=== PATIENT | male | born 1940 | race Caucasian/White ===

== ENCOUNTER 2016-12-26 18:29 | Inpatient (IN) ==
--- NOTE | 2016-12-26 19:02 | Emergency Department Report ---
Psych HPI - General Stated Complaint: Evaluation Time Seen by Provider: 12/26/16 18:41 Source: patient Mode of arrival: ambulatory Limitations: no limitations - History of Present Illness HPI Narrative: He is a resident at [facility] in [place]. Over the last several days has been refusing to eat and to take him medications. His recently and then he went to live in the [place]. He presents to Er today for medical clearance. MD complaint: altered mental status, other (weight loss, not taking his medications) Onset (ago): week(s) Duration: constant Prior Hospitalization: No Relieving factors: none Exacerbating factors: none Associated psychiatric symptoms: depression Associated symptoms: denies other symptoms Treatments prior to arrival: none - Related Data Home Medications Medication Instructions Recorded Confirmed Acetaminophen 650 mg PO Q6H PRN 12/26/16 12/26/16 Donepezil HCl [Aricept] 5 mg PO HS 12/26/16 12/26/16 LORazepam [Ativan] 0.5 mg PO Q6H PRN 12/26/16 12/26/16 Linaclotide [Linzess] 145 mcg PO DAILY 12/26/16 12/26/16 Memantine HCl [Namenda Xr] 28 mg PO DAILY 12/26/16 12/26/16 RisperiDONE [RisperDAL] 0.25 mg PO BID 12/26/16 12/26/16 Allergies Allergy/AdvReac Type Severity Reaction Status Date / Time codeine Allergy Unknown Verified 12/26/16 19:05 hydrocodone Allergy Unknown Verified 12/26/16 19:05 Review of Systems Constitutional: Denies: fever, chills, weakness ENT: Denies: ear pain, throat pain, congestion Cardiovascular: Denies: chest pain Respiratory: Denies: cough, dyspnea, wheezes Gastrointestinal: Denies: abdominal pain, nausea, vomiting, diarrhea Integumentary: Denies: rash Neurological: Denies: headache, weakness, numbness, paresthesias [facility] Patient Stated Medical History Dementia Yes Other GI Yes: CONSTIPATION Physical Exam - Limitations Limitations: no limitations - General General appearance: alert, in no apparent distress - Normal Exams: ENMT:: No facial trauma, nasal exudates, pharyngeal erythema, or exudates are noted Neck:: Full range of motion, without adenopathy, JVD, bruits or thyromegaly Chest/Respirations:: Clear all ray, with good airflow, and symmetry bilaterally Cardiovascular:: Regular rate and rhythm, without murmur or gallop, Pulses 2+ all extremities, capillary refill, <2 seconds all extremities Abdomen:: Bowel sounds positive, soft, non-tender, non-distended, no hepatosplenomegaly, masses or bruits noted Lymphatic:: No lymphadenopathy, or lymphedema noted Integumentary:: No rashes, hives, or bruising noted Neurological:: Patient is alert Psychiatric:: Patient exhibits, appropriate attention, emotion and affect - Psychiatric Psychiatric exam: Present: depressed, other (Is alert to person only. ) Course Vital Signs Temperature 97.7 F 12/26/16 18:42 Pulse Rate 69 12/26/16 18:42 Respiratory Rate 12 12/26/16 18:42 Blood Pressure 113/62 12/26/16 18:42 Pulse Oximetry 100 12/26/16 18:42 Temperature 97.7 F 12/26/16 18:42 Pulse Rate 63 12/26/16 20:30 Respiratory Rate 12 12/26/16 18:42 Blood Pressure 120/68 12/26/16 20:30 Pulse Oximetry 98 12/26/16 20:30 Psych - MDM Narrative Medical decision making narrative: Labs today are normal, xray is negative. Will clear him today for [facility]. - Differential Diagnosis Likely: suicidal ideation, depression, acute anxiety - Lab Data Attestation: I reviewed the patient's lab results. Result diagrams: 12/26/16 19:10 12/26/16 19:10 Lab Results 12/26/16 12/26/16 12/26/16 Range/Units 19:10 19:10 20:13 WBC 7.2 (4.5-11.0) T/MM3 RBC 3.97 L (4.50-5.90) M/MM3 Hgb 12.1 L (13.5-17.5) GM/DL Hct 37.2 L (41-53) % MCV 93.7 (80-100) UM3 MCH 30.5 (26-34) UUG MCHC 32.5 (31-37) GM/DL RDW Std Deviation 42.3 (36.9-50.2) FL Plt Count 150 (130-400) T/MM3 MPV 11.5 (9.4-12.4) UM3 Immature Gran % (Auto) 0.1 (0.0-0.5) % Neut % (Auto) 76.3 H (33-66) % Lymph % (Auto) 17.9 L (23-45) % Wilkes % (Auto) 5.3 (0-9.0) % Eos % (Auto) 0.1 (0-4) % Baso % (Auto) 0.3 (0-2) % Neut # (Auto) 5.5 (1.8-7.7) T/MM3 Lymph # (Auto) 1.3 (1-4.8) T/MM3 Wilkes # (Auto) 0.4 (0-0.8) T/MM3 Eos # (Auto) 0.0 (0-0.5) T/MM3 Baso # (Auto) 0.0 (0-0.2) T/MM3 Abs Immat Gran (auto) 0.01 (0.00-0.03) T/MM3 Turbidity < 20 (0-20) Sodium 144 (134-144) MEQ/L Potassium 4.0 (3.6-5) MEQ/L Chloride 107 (98-107) MEQ/L Carbon Dioxide 28 (22-30) MEQ/L Anion Gap 9 (5-15) MEQ/L BUN 36.0 H (9-20) MG/DL Creatinine 1.0 (0.8-1.5) MG/DL GFR Calculation 73 BUN/Creatinine Ratio 36 H (6-26) RATIO Glucose 87 (75-110) MG/DL Calculated Osmolality 284 H (261-280) MOSM/KG Calcium 9.3 (8.4-10.2) MG/DL Total Bilirubin 0.70 (0.20-1.30) MG/DL Icterus Index < 2 (0-7) AST 26 (17-59) U/L ALT 37 (21-72) U/L Alkaline Phosphatase 49 (38-126) U/L Total Protein 6.3 (6.3-8.2) G/DL Albumin 3.6 (3.5-5.0) G/DL Globulin 2.7 (2.4-3.6) G/DL Albumin/Globulin Ratio 1.3 (1.1-2.2) RATIO Specimen Hemolysis < 15 (0-25) Ur Collection Type Urine, clean catch Urine Color Yellow (YELLOW) Urine Clarity Clear Urine pH 6.5 (5.0-8.0) Ur Specific [place] 1.010 L (1.015-1.025) Urine Protein Negative (NEGATIVE) Urine Glucose (UA) Negative (NEGATIVE) Urine Ketones Negative (NEGATIVE) Urine Occult Blood Trace-intact (NEGATIVE) Urine Nitrate Negative (NEGATIVE) Urine Bilirubin Negative (NEGATIVE) Urine Urobilinogen >=8.0 A (NORMAL) EU/DL Ur Leukocyte Esterase Negative (NEGATIVE) Urinalysis Comment Microscopic not ind. - Radiology Data Attestation: I reviewed the patient's radiology results. Chest xray: no acute cardiopulmonary process Disposition Clinical Impression: DEMENTIA Disposition: 67 To [facility] [place] [facility] Condition: Stable Time of Disposition: 21:24 - Seen By: real
[2016-12-26] MEDS ORDERED: HALOPERIDOL 5 MG/ML INJECTION IM PRN (22:11)
[2016-12-27] MEDS: LORazepam 0.5 MG TABLET PO PRN (03:22)
[2016-12-27] MEDS: HALOPERIDOL 0.5 MG TABLET PO PRN (03:22)
--- NOTE | 2016-12-27 08:19 | XRay Report ---
Indication: confusion PROCEDURE: XR chest 1V: Encounter: Initial Comparison: None Findings: The lungs are hyperinflated with small calcified granulomas. No consolidative pneumonia, pleural effusion or pneumothorax. Prior CABG with coronary artery stent. Cardiac silhouette is within normal limits. Pulmonary vascularity and mediastinal contours are normal. Impression: No pneumonia. Hyperinflation could be due to COPD. .
[2016-12-27] MEDS: MEMANTINE 10 MG TABLET PO SCH ×2 (10:01→20:02)
[2016-12-27] MEDS: LINACLOTIDE 145 MCG CAPSULE PO SCH (10:01)
--- NOTE | 2016-12-27 14:59 | History & Physical Report ---
<SamreenFunmi A - Last Filed: 12/27/16 14:48> History of Present Illness Date: 12/27/16 Chief complaint: dementia with behavioral changes, weight loss HPI: Ildefonso Miramontes is a 76-year-old male resident of [facility] who presented to [facility] emergency department on the evening of 12/26/16 for evaluation of increased anxiety, agitation and behavioral changes. He has a history of dementia and is a poor historian so the majority of the medical history is obtained from prior medical records, halfway notes and nursing notes. In September,, he was moved to [place] following his 's as she was his primary caregiver. His his move, nursing has reported a decline. He has experienced a 16 pound weight loss in the past month and is now requiring assistance with food intake as he has been refusing to eat and more recently, his medications. It is also reported that he has been experiencing visual hallucinations for the past 3 days including seeing a coat, cats and gremlins as well as demonstrating paranoid delusions including "concern with food delivery" causing him to pour out liquid supplement shakes offered. Due to his apparent decline, he was brought to [facility] ED for further evaluation and [facility] screening. Upon arrival to the ED, his vital signs were stable. Labs were obtained and were unremarkable with the exception of mild anemia with hemoglobin of 12.1. Review of prior medical records indicates that his hemoglobin on 12/23/16 was 13.5. TSH was within normal limits at 2.27 and UA was unremarkable. CXR revealed no pneumonia with hyperinflation which could be due to COPD. [facility] was contacted and he was admitted for further psychiatric evaluation and treatment. The hospitalist service was consulted for medical management as he has a history of CAD with previous CABG, constipation and dementia. On exam, he is seen while sleeping in his room. He arouses briefly and makes eye contact before going back to sleep. He denies any concerns or complaints including no chest pain, shortness of breath, abdominal pain, nausea, vomiting or dysuria. Review of Systems ROS unobtainable: due to mental status All systems PM: 10-point ROS was reviewed, no additional remarkable complaints except - Constitutional Constitutional: Present: anorexia, weight loss. Absent: fever(s) - EENMT Eyes: Absent: photophobia Nose: Absent: nosebleeds Mouth/Throat: Present: dry mouth - Cardiovascular Cardiovascular: Absent: chest pain, palpitations, syncope Vascular: Absent: pedal edema - Respiratory Respiratory: Absent: cough, dyspnea, hemoptysis, wheezing - Gastrointestinal Gastrointestinal: Present: constipation. Absent: abdominal pain, nausea, vomiting - Genitourinary Genitourinary: Absent: dysuria, hematuria - Musculoskeletal Musculoskeletal: Absent: deformity - Integumentary/Breasts Integumentary: Absent: rash - Neurological Neurological: Present: confusion, frequent falls, memory loss. Absent: convulsions - Psychiatric Psychiatric: Present: anxiety, behavioral changes, paranoia, visual hallucinations - Endocrine Endocrine: Absent: palpitations - Hematologic/Lymphatic Hematologic/Lymphatic: Absent: easy bleeding - Allergic/Immunologic Allergic/Immunologic: Absent: seasonal rhinorrhea PFSH Constipation. Dementia. CAD. Surgical History: CABG. Tonsillectomy. Family History Updates: Unable to obtain due to patient's dementia. 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 Cyr/Ghazal Montes APRN. Review of records from halfway included forms outlining patient's likes and dislikes including his love for cars, working on hotrods and art. Medications Home Medications Medication Instructions Recorded Confirmed Type Acetaminophen 650 mg PO Q6H PRN 12/26/16 12/26/16 History Donepezil HCl [Aricept] 5 mg PO HS 12/26/16 12/26/16 History LORazepam [Ativan] 0.5 mg PO Q6H PRN 12/26/16 12/26/16 History Linaclotide [Linzess] 145 mcg PO DAILY 12/26/16 12/26/16 History Memantine HCl [Namenda Xr] 28 mg PO DAILY 12/26/16 12/26/16 History RisperiDONE [RisperDAL] 0.25 mg PO BID 12/26/16 12/26/16 History Allergies Allergy/AdvReac Type Severity Reaction Status Date / Time codeine Allergy Unknown Verified 12/26/16 19:05 hydrocodone Allergy Unknown Verified 12/26/16 19:05 Exam Vital Signs: Temperature 98.1 F 12/27/16 09:30 Pulse Rate 87 12/27/16 09:30 Respiratory Rate 16 12/27/16 09:30 Blood Pressure 107/79 12/27/16 09:30 Pulse Oximetry 100 12/27/16 09:30 Height/Weight/BMI: Height 5 ft 7 in Weight 124 lb 1.924 oz - Constitutional Present: no acute distress, cooperative - Routine HEENT Exam Head: Present: normocephalic, atraumatic Eye: Present: PERRL. Absent: conjunctival icterus ENT: Present: mucous membranes dry - Routine Neck Exam Present: supple, trachea midline - Routine Chest/Breast/Axilla Exam Chest wall: Absent: pacemaker - Routine Respiratory Exam Present: CTA bilaterally. Absent: wheezes, crackles - Routine Cardiovascular Exam Present: RRR, S1, S2 - Routine Abdominal Exam Present: soft, normoactive bowel sounds, non distended, non tender Comments: very thin - Routine Extremities Exam Present: no edema, pulses intact - Routine Back/Spine/Pelvis Exam Back/Spine: Present: full ROM - Routine Skin Exam Present: intact, dry. Absent: jaundice Comments: afebrile. - Routine Neurological Exam Present: moving all extremities. Absent: facial asymmetry - Routine Psychiatric Exam Present: cooperative Results - Labs CBC & Chem 7: 12/26/16 19:10 12/26/16 19:10 - Imaging and Cardiology Chest x-ray Status: image reviewed by me Additional comments: Date of Exam: 12/26/16 PROCEDURE: XR chest 1V: Findings: The lungs are hyperinflated with small calcified granulomas. No consolidative pneumonia, pleural effusion or pneumothorax. Prior CABG with coronary artery stent. Cardiac silhouette is within normal limits. Pulmonary vascularity and mediastinal contours are normal. Impression: No pneumonia. Hyperinflation could be due to COPD. Assessment and Plan (1) Dementia with behavioral disturbance Current visit: Yes Status: Acute Resuscitation Status: Do Not Resuscitate Assessment and Plan: 76-year-old resident of [facility] in [place] presented to [facility] ED for evaluation of dementia with behavioral changes including decreased appetite, weight loss, agitation, visual hallucinations and paranoid delusions and was accepted to [facility] unit. Assessment Dementia with behavioral changes, acute. Paranoid delusions and visual hallucinations, acute. Anemia, present on admission, acute. Constipation, chronic. History of CAD with prior CABG, chronic. Plan-12/27/16 (Admission) Agree on admission to [facility] unit for further psychiatric evaluation and treatment. Hospitalist service consulted for medical management. Provide safe and supportive environment. Reported decrease in oral intake with weight loss of 16 pounds in the past month. Patient is at risk for malnutrition and complications associated with malnutrition. Consult dietary for additional recommendations. Prealbumin on admission was 14.9, concerning for mild protein calorie malnutrition. Encourage oral intake and fluids. Continue home medications as well as PRN medications for agitation and behaviors. Hemoglobin on admission was low at 12.1. Hemoglobin on 12/23 based on prior records was 13.5. Monitor closely for signs of acute blood loss as BUN is also noted to be slightly elevated at 36. Will recheck CBC and BMP in AM to monitor blood counts, electrolytes and renal function. Given weight loss, decreased appetite, anemia and elevated BUN, may consider checking fecal Hemoccult for possible GI bleed if labs in AM continue to trend down. Monitor blood pressure closely. Review of the patient's chart revealed living will indicating that the patient does not want IV hydration or IV nutrition to prolong life or intubation. DNR paperwork was not present in chart. Discussed with nursing who reported that DNR paperwork is waiting on being signed by Dr. Dan. Currently the patient remains a full code. Upon discharge, patient's care will be returned to his PCP, Dr. Cyr. We appreciate being able to be apart of the patient's care. - Time spent with patient Time with patient PN: 70 minutes Hospital Course Summary Disclaimer: The visit summary below is not to be considered part of the above Progress Note. Hospital Course: Assessment Dementia with behavioral changes, acute. Paranoid delusions and visual hallucinations, acute. Anemia, present on admission, acute. Constipation, chronic. History of CAD with prior CABG, chronic. Plan-12/27/16 (Admission) Agree on admission to [facility] unit for further psychiatric evaluation and treatment. Hospitalist service consulted for medical management. Provide safe and supportive environment. Reported decrease in oral intake with weight loss of 16 pounds in the past month. Patient is at risk for malnutrition and complications associated with malnutrition. Consult dietary for additional recommendations. Prealbumin on admission was 14.9, concerning for mild protein calorie malnutrition. Encourage oral intake and fluids. Continue home medications as well as PRN medications for agitation and behaviors. Hemoglobin on admission was low at 12.1. Hemoglobin on 12/23 based on prior records was 13.5. Monitor closely for signs of acute blood loss as BUN is also noted to be slightly elevated at 36. Will recheck CBC and BMP in AM to monitor blood counts, electrolytes and renal function. Given weight loss, decreased appetite, anemia and elevated BUN, may consider checking fecal Hemoccult for possible GI bleed if labs in AM continue to trend down. Monitor blood pressure closely. Review of the patient's chart revealed living will indicating that the patient does not want IV hydration or IV nutrition to prolong life or intubation. DNR paperwork was not present in chart. Discussed with nursing who reported that DNR paperwork is waiting on being signed by Dr. Dan. Currently the patient remains a full code. Upon discharge, patient's care will be returned to his PCP, Dr. Cyr. We appreciate being able to be apart of the patient's care. <Nora Archuleta - Last Filed: 12/27/16 21:50> History of Present Illness Date: 12/27/16 [facility] Patient Stated Medical History Dementia Yes Coronary Artery Disease Yes: CABG x4 Other GI Yes: CONSTIPATION IBS, wt. loss, poor appetite Hx Incontinence Yes Other Yes: elevated lipids Depression Yes Exam Vital Signs: Temperature 99.0 F 12/27/16 17:27 Pulse Rate 84 12/27/16 17:27 Respiratory Rate 18 12/27/16 17:27 Blood Pressure 110/66 12/27/16 17:27 Pulse Oximetry 100 12/27/16 17:27 Height/Weight/BMI: Height 1.7 m Weight 56.245 kg Body Mass Index 19.4 Results - Labs CBC & Chem 7: 12/26/16 19:10 12/26/16 19:10 Assessment and Plan (1) Dementia with behavioral disturbance Current visit: Yes Status: Acute Assessment and Plan: 12/27/2016-I reviewed this chart, the patient history, and the TOWER WATCHMAN's/PA's documented findings as above. We discussed and formulated the assessment and plan as above with the additions below.-Dr. Archuleta I would see the patient this evening but, he was asleep in his room. He did not want to awaken him. His nurse states that he is very nonsensical and confused. He drank juice well for her tonight as long as he was redirected. He needed Haldol and Ativan earlier today. Medically, she stated he was doing well. We'll continue with current care plan as noted above. CT head was ordered and is pending. B-12 and folate are pending. We'll start nutritional supplements 3 times a day. Nursing staff will likely need to encourage the patient to eat and drink well. Hospital Course Summary Disclaimer: The visit summary below is not to be considered part of the above Progress Note.
[2016-12-27] MEDS ORDERED: INFLUENZA VAC High Dose 2017-18 (Fluzone HD*) (>=65yo) 0.5ml IM ONE (16:24)
[2016-12-27 16:29] VITALS: BMI 19.4
[2016-12-27] MEDS ORDERED: INFLUENZA VAC. INJ. ADMIN CHARGE INJ ONE (16:45)
--- NOTE | 2016-12-27 20:02 | 24 Hour Neuropsychiatic Eval ---
Date of Admission: 12/26/16 22:00 Chief complaint: Decline since 's recent History of Present Illness: Patient is a 76-year-old male with a history of dementia who was admitted to [facility] on 12/27 from [facility]. He has been living there since 10/13/16, since the sudden of his 2nd (and primary caregiver). Staff report patient has declined since that time, losing 16 lb. in the past month. He has been refusing to eat and take medications. He has had VH and paranoia. He has been less engaging with staff/residents and occasionally will push staff away if they try to help. On interview, patient whispers and can be very difficult to understand. He walks with a shuffling, slow gait with his back hunched. He tells me he is from [place], [place] and he is here "because his Dad need a job." He did complain to nursing staff about seeing scary things (cats, gremlins, Swastikas, cars) when walking the halls. He does not give logical answers when asked about SI or HI. Patient reportedly lost his first before remarrying and then lost a son in his 20s in an MVA. His 2nd reportedly suddenly due to [place]. DPOA is daughter Ananya Miramontes ([phone]). Depression: Loss of Energy, Changes in Appetite, Significant Weight Loss Psychosis: Hallucinations/Illusions, Disorganized speech (secondary to dementia) PFSH Patient Stated Medical History Dementia Yes Coronary Artery Disease Yes: CABG x4 Other GI Yes: CONSTIPATION IBS, wt. loss, poor appetite Hx Incontinence Yes Other Yes: elevated lipids Depression Yes Surgical History: CABG. Tonsillectomy. Family History: Unobtainable from patient - will discuss with family - Social History Smoking status: Former smoker Substance use type: does not use Alcohol intake frequency: does not drink Housing: assisted living facility ([facility]) Household members: none Current residence: Assisted Living Review of Systems ROS unobtainable: due to mental status - EENMT Nose: Absent: nosebleeds Mouth/Throat: Present: dry mouth - Cardiovascular Vascular: Absent: pedal edema - Genitourinary Genitourinary: Absent: dysuria, hematuria - Psychiatric Psychiatric: Present: as per HPI, behavioral changes, paranoia, visual hallucinations Mental Status Exam Vitals: Last Vital Signs Temp 99.0 F 12/27/16 17:27 Pulse 84 12/27/16 17:27 Resp 18 12/27/16 17:27 BP 110/66 12/27/16 17:27 Pulse Ox 100 12/27/16 17:27 Height: 1.7 m Weight: 56.245 kg - Mental Status Exam Muscle Strength/Tone: Weak Dressing: Casual Grooming: Poor Attitude: Cooperative Motor Activity: Pacing (slowly) Eye Contact: Poor Speech: Slowed Volume: Soft (barely audible) Rhythm: Mumbled Sensory: Alert Orientation: Disoriented to time, Disoriented to place, Disoriented to situation , Oriented to person Mood: Other (Patient does not give logical response) Affect: Flat Rate of Thoughts: Delayed Thought Organization: Disorganized, [place] Associations: Illogical Abstract Reasoning: Impaired, concrete Thought Content: Paranoia (reported by NH), Other (Out of context to interview questions) Perception/Psychotic: Psychotic Current Hallucinations: Visual Language: Naming Impaired Fund of Knowledge: Poor fund of knowledge Memory: Poor-immediate, Poor-recent Suicidal Ideation: Other (Patient does not give logical response) Homicidal Ideation: Other (Patient does not give logical response) Insight: Impaired Judgement: Impaired Impulse Control: Poor - Laboratory Result Diagrams: 12/26/16 19:10 12/26/16 19:10 Assessment and Plan (1) Major neurocognitive disorder Problem details: Etiology unknown - r/o Lewy body dementia Current visit: Yes Status: Acute (2) Psychosis Qualifiers: Psychosis type: unspecified psychosis type Qualified Code(s): F29 - Unspecified psychosis not due to a substance or known physiological condition Problem details: r/o Major depressive disorder with psychotic features Mood disorder strongly suspected Current visit: Yes Status: Acute Admit to [facility] and maintain safety and elopement precautions. Will obtain further collateral history from family and facility. Will review/order following labs: CBC, CMP, TSH, Vitamin B12, folate. May consider CT of head if not done recently and patient will tolerate it. Monitor patient's mood and behavior. Will discuss treatment with DPOA prior to starting psychotropic medications.
[2016-12-27] MEDS ORDERED: DONEPEZIL 5 MG TABLET PO SCH (21:00)
[2016-12-28] MEDS: MEMANTINE 10 MG TABLET PO SCH ×2 (08:57→21:04)
[2016-12-28] MEDS: LINACLOTIDE 145 MCG CAPSULE PO SCH (08:57)
[2016-12-28] MEDS ORDERED: Bisacodyl EC TAB 5 MG TABLET PO PRN (11:50)
[2016-12-28] MEDS: LORazepam 0.5 MG TABLET PO PRN (16:29)
[2016-12-28] MEDS: ACETAMINOPHEN 325 MG TABLET PO PRN (19:49)
--- NOTE | 2016-12-28 19:50 | Neuropsych Progress Note ---
[facility] Subjective Date: 12/28/16 - Sujective/Severity of Illness Medications: Acetaminophen (Tylenol) 650 mg PO Q6H PRN PRN Reason: Pain /Fever Bisacodyl (Dulcolax) 10 mg PO DAILY PRN PRN Reason: Constipation Last Admin: 12/28/16 12:10 Dose: 10 mg Donepezil HCl (Aricept) 5 mg PO HS [facility] Last Admin: 12/27/16 20:02 Dose: 5 mg Haloperidol (Haldol) 0.5 mg PO Q6H PRN PRN Reason: Extreme agitation Last Admin: 12/27/16 03:22 Dose: 0.5 mg Haloperidol Lactate (Haldol) 0.5 mg IM Q6H PRN PRN Reason: Extreme agitation Linaclotide (Linzess) 145 mcg PO DAILY [facility] Last Admin: 12/28/16 08:57 Dose: 145 mcg Lorazepam (Ativan) 0.5 mg PO Q6H PRN PRN Reason: Extreme agitation Last Admin: 12/28/16 16:29 Dose: 0.5 mg Lorazepam (Ativan Inj) 0.5 mg IM Q6H PRN PRN Reason: Extreme agitation Memantine (Namenda) 10 mg PO BID [facility] Last Admin: 12/28/16 08:57 Dose: 10 mg Risperidone (Risperdal) 0.25 mg PO BID [facility] Last Admin: 12/28/16 08:57 Dose: 0.25 mg Subjective: Patient seen and chart reviewed. Case discussed with treatment team. On interview, patient is cooperative but seems emotionally distressed. He is disorganized and illogical at times but does admit to feeling depressed frequently, with difficulty sleeping and decreased appetite. He believes he attended the of a friend today and says it is a rough day because of that. He continues to have distressing VH and be frequently restless. He reports morbid thoughts but denies suicidal plan/intent. He does say he has had thoughts of hurting his sister or daughter but then gives an illogical reason as to why. Patient slept well overnight. VSS. Patient has been eating better since admission. Psychotropic PRNs required in the past 24 hours: Ativan 0.5mg PO. Start Time: 17:40 Stop Time: 18:00 Mental Status Exam Vitals: Last Vital Signs Temp 97.9 F 12/28/16 08:47 Pulse 87 12/28/16 08:47 Resp 16 12/28/16 08:47 BP 113/76 12/28/16 08:47 Pulse Ox 95 12/28/16 08:47 Height: 1.7 m Weight: 56.245 kg - Mental Status Exam Muscle Strength/Tone: Weak Dressing: Casual Grooming: Poor Attitude: Cooperative Motor Activity: Pacing (frequently), Restless Eye Contact: Poor Speech: Slowed Volume: Soft (barely audible) Rhythm: Mumbled Orientation: Disoriented to time, Disoriented to place, Disoriented to situation , Oriented to person Mood: Depressed Affect: Depressed (appears distressed) Rate of Thoughts: Delayed Thought Organization: Disorganized, [place] Associations: Illogical Abstract Reasoning: Impaired, concrete Thought Content: Ruminations, Hopelessness, Helplessness Perception/Psychotic: Psychotic Current Hallucinations: Visual Language: Naming Impaired Fund of Knowledge: Poor fund of knowledge Memory: Poor-immediate, Poor-recent Suicidal Ideation: Other (Endorses morbid thoughts, denies suicidal plan/intent) Homicidal Ideation: Other (Says he has thoughts of hurting his daughter and sister) Insight: Impaired Judgement: Impaired Impulse Control: Poor - Laboratory Result Diagrams: 12/28/16 06:09 12/28/16 06:09 Laboratory Results - last 24 hr 12/28/16 12/28/16 06:09 06:09 WBC 5.5 RBC 4.18 L Hgb 12.4 L Hct 38.8 L MCV 92.8 MCH 29.7 MCHC 32.0 RDW Std Deviation 41.9 Plt Count 156 MPV 11.5 Immature Gran % (Auto) 0.0 Neut % (Auto) 69.1 H Lymph % (Auto) 23.5 [place] % (Auto) 5.6 Eos % (Auto) 1.3 Baso % (Auto) 0.5 Neut # (Auto) 3.8 Lymph # (Auto) 1.3 [place] # (Auto) 0.3 Eos # (Auto) 0.1 Baso # (Auto) 0.0 Abs Immat Gran (auto) 0.00 Turbidity < 20 Sodium 144 Potassium 3.7 Chloride 107 Carbon Dioxide 31 H Anion Gap 6 BUN 24.0 H Creatinine 0.7 L D GFR Calculation 110 BUN/Creatinine Ratio 34 H Glucose 85 Calculated Osmolality 280 Calcium 9.2 Icterus Index < 2 Specimen Hemolysis < 15 Assessment and Plan (1) Major neurocognitive disorder Problem details: Etiology unknown - r/o Lewy body dementia Current visit: Yes Status: Acute (2) Psychosis Qualifiers: Psychosis type: unspecified psychosis type Qualified Code(s): F29 - Unspecified psychosis not due to a substance or known physiological condition Problem details: r/o Major depressive disorder with psychotic features Mood disorder strongly suspected Current visit: Yes Status: Acute Hospital Course Summary Disclaimer: The visit summary below is not to be considered part of the above Progress Note. Hospital Course: Assessment Dementia with behavioral changes, acute. Paranoid delusions and visual hallucinations, acute. Anemia, present on admission, acute. Constipation, chronic. History of CAD with prior CABG, chronic. Plan-12/27/16 (Admission) Agree on admission to [facility] unit for further psychiatric evaluation and treatment. Hospitalist service consulted for medical management. Provide safe and supportive environment. Reported decrease in oral intake with weight loss of 16 pounds in the past month. Patient is at risk for malnutrition and complications associated with malnutrition. Consult dietary for additional recommendations. Prealbumin on admission was 14.9, concerning for mild protein calorie malnutrition. Encourage oral intake and fluids. Continue home medications as well as PRN medications for agitation and behaviors. Hemoglobin on admission was low at 12.1. Hemoglobin on 12/23 based on prior records was 13.5. Monitor closely for signs of acute blood loss as BUN is also noted to be slightly elevated at 36. Will recheck CBC and BMP in AM to monitor blood counts, electrolytes and renal function. Given weight loss, decreased appetite, anemia and elevated BUN, may consider checking fecal Hemoccult for possible GI bleed if labs in AM continue to trend down. Monitor blood pressure closely. Review of the patient's chart revealed living will indicating that the patient does not want IV hydration or IV nutrition to prolong life or intubation. DNR paperwork was not present in chart. Discussed with nursing who reported that DNR paperwork is waiting on being signed by Dr. Dan. Currently the patient remains a full code. Upon discharge, patient's care will be returned to his PCP, Dr. Cyr. We appreciate being able to be apart of the patient's care. 12/28/16 Psych: Will discuss treatment plan with patient's daughter/DPOA. Plan to start Zoloft 25mg PO daily to target depression and Exelon patch as LBD seems most likely. May eventually need antipsychotic but would like to ensure patient is tolerating these meds well first. Patient has been eating better since admission. Monitor mood, behavior and response to treatment.
[2016-12-28] MEDS ORDERED: DONEPEZIL 5 MG TABLET PO SCH (20:00)
[2016-12-29] MEDS: SERTRALINE 25 MG TABLET PO SCH (08:51)
[2016-12-29] MEDS: MEMANTINE 10 MG TABLET PO SCH ×2 (08:51→20:29)
[2016-12-29] MEDS: LINACLOTIDE 145 MCG CAPSULE PO SCH (08:51)
--- NOTE | 2016-12-29 10:37 | Neuropsych Progress Note ---
[facility] Subjective Date: 12/30/16 - Sujective/Severity of Illness Medications: Acetaminophen (Tylenol) 650 mg PO Q6H PRN PRN Reason: Pain /Fever Last Admin: 12/28/16 19:49 Dose: 650 mg Bisacodyl (Dulcolax) 10 mg PO DAILY PRN PRN Reason: Constipation Last Admin: 12/28/16 12:10 Dose: 10 mg Donepezil HCl (Aricept) 10 mg PO [facility] Haloperidol (Haldol) 0.5 mg PO Q6H PRN PRN Reason: Extreme agitation Last Admin: 12/27/16 03:22 Dose: 0.5 mg Haloperidol Lactate (Haldol) 0.5 mg IM Q6H PRN PRN Reason: Extreme agitation Linaclotide (Linzess) 145 mcg PO DAILY [facility] Last Admin: 12/29/16 08:51 Dose: 145 mcg Lorazepam (Ativan) 0.5 mg PO Q6H PRN PRN Reason: Extreme agitation Last Admin: 12/28/16 16:29 Dose: 0.5 mg Lorazepam (Ativan Inj) 0.5 mg IM Q6H PRN PRN Reason: Extreme agitation Memantine (Namenda) 10 mg PO BID [facility] Last Admin: 12/29/16 08:51 Dose: 10 mg Risperidone (Risperdal) 0.25 mg PO BID [facility] Last Admin: 12/29/16 08:51 Dose: 0.25 mg Sertraline HCl (Zoloft) 25 mg PO DAILY [facility] Last Admin: 12/29/16 08:51 Dose: 25 mg Subjective: Patient not available for unit as he was participating in cares during my time on unit. Staff report that patient needs frequent cueing but has not appeared paranoid, anxious or agitated since last seen (the evening prior). He needs cueing and encouragement but finished 100% of his food. He was reportedly pleasant and seemed more coherent earlier this morning after sleeping 8 hours overnight, no PRNs required since last seen. VSS. Start Time: 09:20 Stop Time: 09:30 Mental Status Exam Vitals: Last Vital Signs Temp 98.5 F 12/28/16 22:00 Pulse 55 L 12/29/16 06:31 Resp 18 12/28/16 22:00 BP 122/67 12/29/16 06:31 Pulse Ox 92 12/28/16 22:00 Height: 1.7 m Weight: 56.245 kg - Mental Status Exam Muscle Strength/Tone: Weak Dressing: Casual Grooming: Poor Attitude: Cooperative Eye Contact: Poor Speech: Slowed Volume: Soft (barely audible) Rhythm: Mumbled Orientation: Disoriented to time, Disoriented to place, Disoriented to situation , Oriented to person Mood: Depressed Rate of Thoughts: Delayed Thought Organization: Disorganized, [place] Associations: Illogical Abstract Reasoning: Impaired, concrete Thought Content: Ruminations, Hopelessness, Helplessness Perception/Psychotic: Psychotic Current Hallucinations: Visual Language: Naming Impaired Fund of Knowledge: Poor fund of knowledge Memory: Poor-immediate, Poor-recent Suicidal Ideation: Other (Endorses morbid thoughts, denies suicidal plan/intent) Homicidal Ideation: Other (Says he has thoughts of hurting his daughter and sister) Insight: Impaired Judgement: Impaired Impulse Control: Poor - Laboratory Result Diagrams: 12/28/16 06:09 12/28/16 06:09 Assessment and Plan (1) Major neurocognitive disorder Problem details: Etiology unknown - r/o Lewy body dementia Current visit: Yes Status: Acute (2) Psychosis Qualifiers: Psychosis type: unspecified psychosis type Qualified Code(s): F29 - Unspecified psychosis not due to a substance or known physiological condition Problem details: r/o Major depressive disorder with psychotic features Mood disorder strongly suspected Current visit: Yes Status: Acute Hospital Course Summary Disclaimer: The visit summary below is not to be considered part of the above Progress Note. Hospital Course: Assessment Dementia with behavioral changes, acute. Paranoid delusions and visual hallucinations, acute. Anemia, present on admission, acute. Constipation, chronic. History of CAD with prior CABG, chronic. Plan-12/27/16 (Admission) Agree on admission to [facility] unit for further psychiatric evaluation and treatment. Hospitalist service consulted for medical management. Provide safe and supportive environment. Reported decrease in oral intake with weight loss of 16 pounds in the past month. Patient is at risk for malnutrition and complications associated with malnutrition. Consult dietary for additional recommendations. Prealbumin on admission was 14.9, concerning for mild protein calorie malnutrition. Encourage oral intake and fluids. Continue home medications as well as PRN medications for agitation and behaviors. Hemoglobin on admission was low at 12.1. Hemoglobin on 12/23 based on prior records was 13.5. Monitor closely for signs of acute blood loss as BUN is also noted to be slightly elevated at 36. Will recheck CBC and BMP in AM to monitor blood counts, electrolytes and renal function. Given weight loss, decreased appetite, anemia and elevated BUN, may consider checking fecal Hemoccult for possible GI bleed if labs in AM continue to trend down. Monitor blood pressure closely. Review of the patient's chart revealed living will indicating that the patient does not want IV hydration or IV nutrition to prolong life or intubation. DNR paperwork was not present in chart. Discussed with nursing who reported that DNR paperwork is waiting on being signed by Dr. Dan. Currently the patient remains a full code. Upon discharge, patient's care will be returned to his PCP, Dr. Cyr. We appreciate being able to be apart of the patient's care. 12/28/16 Psych: Will discuss treatment plan with patient's daughter/DPOA. Plan to start Zoloft 25mg PO daily to target depression, increase donepezil to 10mg PO q HS. May eventually need antipsychotic but would like to ensure patient is tolerating these meds well first. Patient has been eating better since admission. Monitor mood, behavior and response to treatment. 12/29 Psych: Continue current care as patient seems to have improved from yesterday - will continue to monitor mood, behavior today. Encouragement and cueing from staff is helpful in getting patient to eat more of his meals.
[2016-12-29] MEDS: DONEPEZIL 10 MG TABLET PO SCH (20:29)
[2016-12-29] MEDS: ACETAMINOPHEN 325 MG TABLET PO PRN (20:38)
[2016-12-30] MEDS: MEMANTINE 10 MG TABLET PO SCH ×3 (08:42→20:38)
[2016-12-30] MEDS: LINACLOTIDE 145 MCG CAPSULE PO SCH (08:42)
[2016-12-30] MEDS: SERTRALINE 25 MG TABLET PO SCH (08:42)
--- NOTE | 2016-12-30 10:50 | XRay Report ---
INDICATION: mental status change PROCEDURE: CHEST 2-VIEWS UPRIGHT (PA & LAT) Encounter: Initial COMPARISON: December 26, 2016 FINDINGS: The lungs are clear without evidence of focal abnormal airspace opacity. There is no pleural effusion or pneumothorax. Poststernotomy changes are present. The heart size, mediastinal contours and pulmonary vascularity are within normal limits. There is no significant skeletal abnormality. IMPRESSION: No acute cardiopulmonary disease. .
--- NOTE | 2016-12-30 10:50 | CT Scan Report ---
Indication: mental status change PROCEDURE: CT head/brain wo con: Encounter: Initial Comparison: None Technique: Axial CT images through the head were performed without contrast. Iterative Reconstruction dose reducing technique was utilized. FINDINGS: Mild atrophy. The ventricles are of normal size, shape, and contour for the patient's age. There are scattered areas of low attenuation in the white matter which most likely represent changes from chronic microvascular ischemia. The brainstem, cerebellum, and cerebral hemispheres otherwise have a normal morphology and CT attenuation. There is no evidence of midline displacement. No hemorrhage, signs of acute territorial stroke, mass effect, mass lesions, or edema is evident. The visualized portions of the skull base, midface, and calvarium demonstrate no abnormality. The paranasal sinuses are well aerated and free of significant disease. The tympanic and mastoid cavities appear normal. IMPRESSION: No acute intracranial abnormality or hemorrhage. .
[2016-12-30] MEDS: HALOPERIDOL 0.5 MG TABLET PO PRN (11:28)
[2016-12-30] MEDS: LORazepam 0.5 MG TABLET PO PRN (11:28)
--- NOTE | 2016-12-30 14:58 | Neuropsych Progress Note ---
[facility] Subjective Date: 12/30/16 - Sujective/Severity of Illness Medications: Acetaminophen (Tylenol) 650 mg PO Q6H PRN PRN Reason: Pain /Fever Last Admin: 12/29/16 20:38 Dose: 650 mg Bisacodyl (Dulcolax) 10 mg PO DAILY PRN PRN Reason: Constipation Last Admin: 12/28/16 12:10 Dose: 10 mg Donepezil HCl (Aricept) 10 mg PO HS [facility] Last Admin: 12/29/16 20:29 Dose: 10 mg Haloperidol (Haldol) 0.5 mg PO Q6H PRN PRN Reason: Extreme agitation Last Admin: 12/27/16 03:22 Dose: 0.5 mg Haloperidol Lactate (Haldol) 0.5 mg IM Q6H PRN PRN Reason: Extreme agitation Last Admin: 12/30/16 11:56 Dose: 0.5 mg Linaclotide (Linzess) 145 mcg PO DAILY [facility] Last Admin: 12/30/16 08:42 Dose: 145 mcg Lorazepam (Ativan) 0.5 mg PO Q6H PRN PRN Reason: Extreme agitation Last Admin: 12/28/16 16:29 Dose: 0.5 mg Lorazepam (Ativan Inj) 0.5 mg IM Q6H PRN PRN Reason: Extreme agitation Last Admin: 12/30/16 11:56 Dose: 0.5 mg Memantine (Namenda) 10 mg PO BID [facility] Last Admin: 12/30/16 08:42 Dose: 10 mg Risperidone (Risperdal) 0.25 mg PO BID [facility] Last Admin: 12/30/16 08:42 Dose: 0.25 mg Sertraline HCl (Zoloft) 25 mg PO DAILY [facility] Last Admin: 12/30/16 08:42 Dose: 25 mg Subjective: Patient seen and chart reviewed. On interview, patient is sleeping soundly after requiring an IM for behaviors this morning, including pushing his wheelchair into other people. Nursing staff report patient was cooperative last night but then attempted to throw his food this morning and was aggressive with staff. He continues ot have AVH and talk to people under his breath. Patient slept 7.5 hours overnight. VSS. Patient is eating well with encouragment /cueing from staff. 12/29 Chest x-ray: WNL 12/[address]: mild atrophy, likely changes due to chronic microvascular ischemia Vitamin B12, folate, TSH, RPR all WNL. BUN decreased since admission. Start Time: 11:40 Stop Time: 12:00 Mental Status Exam Vitals: Last Vital Signs Temp 97.7 F 12/30/16 14:43 Pulse 71 12/30/16 14:43 Resp 14 12/30/16 14:43 BP 164/89 H 12/30/16 14:43 Pulse Ox 99 12/30/16 14:43 Height: 1.7 m Weight: 56.245 kg - Mental Status Exam Muscle Strength/Tone: Weak Dressing: Casual Grooming: Poor Attitude: Combative Motor Activity: Restless Eye Contact: Poor Speech: Slowed Volume: Soft (barely audible) Rhythm: Mumbled Orientation: Disoriented to time, Disoriented to place, Disoriented to situation , Oriented to person Mood: Depressed Rate of Thoughts: Delayed Thought Organization: Disorganized, [place] Associations: Illogical Abstract Reasoning: Impaired, concrete Thought Content: Ruminations, Hopelessness, Helplessness Perception/Psychotic: Psychotic Current Hallucinations: Visual, Auditory (suspected) Language: Naming Impaired Fund of Knowledge: Poor fund of knowledge Memory: Poor-immediate, Poor-recent Suicidal Ideation: Other (Endorses morbid thoughts, denies suicidal plan/intent) Homicidal Ideation: Other (Says he has thoughts of hurting his daughter and sister) Insight: Impaired Judgement: Impaired Impulse Control: Poor - Laboratory Result Diagrams: 12/28/16 06:09 12/28/16 06:09 Assessment and Plan (1) Major neurocognitive disorder Problem details: Etiology unknown - r/o Lewy body dementia Current visit: Yes Status: Acute (2) Psychosis Qualifiers: Psychosis type: unspecified psychosis type Qualified Code(s): F29 - Unspecified psychosis not due to a substance or known physiological condition Problem details: r/o Major depressive disorder with psychotic features Mood disorder strongly suspected Current visit: Yes Status: Acute Hospital Course Summary Disclaimer: The visit summary below is not to be considered part of the above Progress Note. Hospital Course: Assessment Dementia with behavioral changes, acute. Paranoid delusions and visual hallucinations, acute. Anemia, present on admission, acute. Constipation, chronic. History of CAD with prior CABG, chronic. Plan-12/27/16 (Admission) Agree on admission to [facility] for further psychiatric evaluation and treatment. Hospitalist service consulted for medical management. Provide safe and supportive environment. Reported decrease in oral intake with weight loss of 16 pounds in the past month. Patient is at risk for malnutrition and complications associated with malnutrition. Consult dietary for additional recommendations. Prealbumin on admission was 14.9, concerning for mild protein calorie malnutrition. Encourage oral intake and fluids. Continue home medications as well as PRN medications for agitation and behaviors. Hemoglobin on admission was low at 12.1. Hemoglobin on 12/23 based on prior records was 13.5. Monitor closely for signs of acute blood loss as BUN is also noted to be slightly elevated at 36. Will recheck CBC and BMP in AM to monitor blood counts, electrolytes and renal function. Given weight loss, decreased appetite, anemia and elevated BUN, may consider checking fecal Hemoccult for possible GI bleed if labs in AM continue to trend down. Monitor blood pressure closely. Review of the patient's chart revealed living will indicating that the patient does not want IV hydration or IV nutrition to prolong life or intubation. DNR paperwork was not present in chart. Discussed with nursing who reported that DNR paperwork is waiting on being signed by Dr. Dan. Currently the patient remains a full code. Upon discharge, patient's care will be returned to his PCP, Dr. Cyr. We appreciate being able to be apart of the patient's care. 12/28/16 Psych: Will discuss treatment plan with patient's daughter/DPOA. Plan to start Zoloft 25mg PO daily to target depression, increase donepezil to 10mg PO q HS. Continue Risperdal 0.5mg PO BID for the time being - may eventually switch to Seroquel. Patient has been eating better since admission. Monitor mood , behavior and response to treatment. 12/29 Psych: Continue current care as patient seems to have improved from yesterday - will continue to monitor mood, behavior today. Encouragement and cueing from staff is helpful in getting patient to eat more of his meals. 12/30 Psych: Will increase Zoloft to 50mg PO daily, discontinue Risperdal and instead start Seroquel 25mg PO TID. Monitor mood, behavior and response to treatment.
[2016-12-30] MEDS: QUETIAPINE 25 MG TABLET PO SCH ×2 (18:36→20:38)
[2016-12-30] MEDS: DONEPEZIL 10 MG TABLET PO SCH (20:38)
[2016-12-31] MEDS: LINACLOTIDE 145 MCG CAPSULE PO SCH (09:53)
[2016-12-31] MEDS: SERTRALINE 50 MG TABLET PO SCH (09:54)
[2016-12-31] MEDS: QUETIAPINE 25 MG TABLET PO SCH ×3 (09:54→20:24)
[2016-12-31] MEDS: MEMANTINE 10 MG TABLET PO SCH ×2 (10:00→20:24)
[2016-12-31] MEDS: DONEPEZIL 10 MG TABLET PO SCH (20:24)
[2016-12-31] MEDS: ACETAMINOPHEN 325 MG TABLET PO PRN (20:24)
[2016-12-31] MEDS: HALOPERIDOL 0.5 MG TABLET PO PRN (20:24)
[2016-12-31] MEDS: LORazepam 0.5 MG TABLET PO PRN (20:24)
--- NOTE | 2016-12-31 21:36 | Neuropsych Progress Note ---
[facility] Subjective Date: 01/01/17 - Sujective/Severity of Illness Medications: Acetaminophen (Tylenol) 650 mg PO Q6H PRN PRN Reason: Pain /Fever Last Admin: 12/31/16 20:24 Dose: 650 mg Bisacodyl (Dulcolax) 10 mg PO DAILY PRN PRN Reason: Constipation Last Admin: 12/28/16 12:10 Dose: 10 mg Donepezil HCl (Aricept) 10 mg PO HS [facility] Last Admin: 12/31/16 20:24 Dose: 10 mg Haloperidol (Haldol) 0.5 mg PO Q6H PRN PRN Reason: Extreme agitation Last Admin: 12/31/16 20:24 Dose: 0.5 mg Haloperidol Lactate (Haldol) 0.5 mg IM Q6H PRN PRN Reason: Extreme agitation Last Admin: 12/30/16 11:56 Dose: 0.5 mg Linaclotide (Linzess) 145 mcg PO DAILY [facility] Last Admin: 12/31/16 09:53 Dose: 145 mcg Lorazepam (Ativan) 0.5 mg PO Q6H PRN PRN Reason: Extreme agitation Last Admin: 12/31/16 20:24 Dose: 0.5 mg Lorazepam (Ativan Inj) 0.5 mg IM Q6H PRN PRN Reason: Extreme agitation Last Admin: 12/30/16 11:56 Dose: 0.5 mg Memantine (Namenda) 10 mg PO BID [facility] Last Admin: 12/31/16 20:24 Dose: 10 mg Quetiapine Fumarate (Seroquel) 25 mg PO TID [facility] Last Admin: 12/31/16 20:24 Dose: 25 mg Sertraline HCl (Zoloft) 50 mg PO DAILY [facility] Last Admin: 12/31/16 09:54 Dose: 50 mg Subjective: Patient seen and chart reviewed. Case discussed with treatment team. Patient is walking the halls with staff and tells me he is "the worst he's ever been." When asked why, he responds, "fuel" -- likely due to expressive aphasia. Nursing staff report patient becomes increasingly restless in the evenings. He continues to have AVH and talk to people under his breath. Patient slept well overnight. VSS. Patient is eating well with encouragement/ cueing from staff. 12/29 Chest x-ray: WNL 12/[address]: mild atrophy, likely changes due to chronic microvascular ischemia Vitamin B12, folate, TSH, RPR all WNL. BUN decreased since admission. Start Time: 17:00 Stop Time: 17:20 Mental Status Exam Vitals: Last Vital Signs Temp 98.6 F 12/31/16 16:00 Pulse 56 L 12/31/16 16:00 Resp 18 12/31/16 16:00 BP 109/59 12/31/16 16:00 Pulse Ox 98 12/31/16 16:00 Height: 1.7 m Weight: 56.245 kg - Mental Status Exam Muscle Strength/Tone: Weak Dressing: Casual Grooming: Poor Attitude: Cooperative (during interview) Motor Activity: Restless Eye Contact: Poor Speech: Slowed, Other (Expressive aphasia) Volume: Soft (barely audible) Rhythm: Mumbled Orientation: Disoriented to time, Disoriented to place, Disoriented to situation , Oriented to person Mood: Depressed Affect: Blunted Rate of Thoughts: Delayed Thought Organization: Disorganized, [place] Associations: Illogical Abstract Reasoning: Impaired, concrete Thought Content: Ruminations, Hopelessness, Helplessness Perception/Psychotic: Psychotic Current Hallucinations: Visual, Auditory (suspected) Language: Naming Impaired Fund of Knowledge: Poor fund of knowledge Memory: Poor-immediate, Poor-recent Suicidal Ideation: Other (Endorses morbid thoughts, denies suicidal plan/intent) Homicidal Ideation: Other (Says he has thoughts of hurting his daughter and sister) Insight: Impaired Judgement: Impaired Impulse Control: Poor - Laboratory Result Diagrams: 12/28/16 06:09 12/28/16 06:09 Assessment and Plan (1) Major neurocognitive disorder Problem details: Etiology unknown - r/o Lewy body dementia Current visit: Yes Status: Acute (2) Psychosis Qualifiers: Psychosis type: unspecified psychosis type Qualified Code(s): F29 - Unspecified psychosis not due to a substance or known physiological condition Problem details: r/o Major depressive disorder with psychotic features Mood disorder strongly suspected Current visit: Yes Status: Acute Hospital Course Summary Disclaimer: The visit summary below is not to be considered part of the above Progress Note. Hospital Course: Assessment Dementia with behavioral changes, acute. Paranoid delusions and visual hallucinations, acute. Anemia, present on admission, acute. Constipation, chronic. History of CAD with prior CABG, chronic. Plan-12/27/16 (Admission) Agree on admission to [facility] unit for further psychiatric evaluation and treatment. Hospitalist service consulted for medical management. Provide safe and supportive environment. Reported decrease in oral intake with weight loss of 16 pounds in the past month. Patient is at risk for malnutrition and complications associated with malnutrition. Consult dietary for additional recommendations. Prealbumin on admission was 14.9, concerning for mild protein calorie malnutrition. Encourage oral intake and fluids. Continue home medications as well as PRN medications for agitation and behaviors. Hemoglobin on admission was low at 12.1. Hemoglobin on 12/23 based on prior records was 13.5. Monitor closely for signs of acute blood loss as BUN is also noted to be slightly elevated at 36. Will recheck CBC and BMP in AM to monitor blood counts, electrolytes and renal function. Given weight loss, decreased appetite, anemia and elevated BUN, may consider checking fecal Hemoccult for possible GI bleed if labs in AM continue to trend down. Monitor blood pressure closely. Review of the patient's chart revealed living will indicating that the patient does not want IV hydration or IV nutrition to prolong life or intubation. DNR paperwork was not present in chart. Discussed with nursing who reported that DNR paperwork is waiting on being signed by Dr. Dan. Currently the patient remains a full code. Upon discharge, patient's care will be returned to his PCP, Dr. Cyr. We appreciate being able to be apart of the patient's care. 12/28/16 Psych: Will discuss treatment plan with patient's daughter/DPOA. Plan to start Zoloft 25mg PO daily to target depression, increase donepezil to 10mg PO q HS. Continue Risperdal 0.5mg PO BID for the time being - may eventually switch to Seroquel. Patient has been eating better since admission. Monitor mood , behavior and response to treatment. 12/29 Psych: Continue current care as patient seems to have improved from yesterday - will continue to monitor mood, behavior today. Encouragement and cueing from staff is helpful in getting patient to eat more of his meals. 12/30 Psych: Will increase Zoloft to 50mg PO daily, discontinue Risperdal and instead start Seroquel 25mg PO TID. Monitor mood, behavior and response to treatment. 12/31/16 Psych: Will continue current care, discuss goals of treatment with family and assess whether Hospice care may be appropriate. Patient seeming to tolerate Seroquel quite well so will not make medication changes in the interim.
[2017-01-01] MEDS: SERTRALINE 50 MG TABLET PO SCH (11:14)
[2017-01-01] MEDS: LINACLOTIDE 145 MCG CAPSULE PO SCH (11:14)
[2017-01-01] MEDS: QUETIAPINE 25 MG TABLET PO SCH ×3 (11:15→20:48)
[2017-01-01] MEDS: MEMANTINE 10 MG TABLET PO SCH (11:15)
--- NOTE | 2017-01-01 17:47 | Progress Note ---
Subjective: Patient is seen sitting in the TV room. He talks very quietly. He does not have any complaints. Nurses have no concerns at this time. He specifically denies chest pain and shortness of breath and abdominal pain. He nods his head yes when asked if he sleeping well and if he is eating well. Objective Vital signs: Temperature 98.6 F 01/01/17 08:00 Pulse Rate 56 L 01/01/17 08:00 Respiratory Rate 18 01/01/17 08:00 Blood Pressure 109/59 01/01/17 08:00 Pulse Oximetry 98 01/01/17 08:00 Height/Weight/BMI: Height 1.7 m Weight 56.245 kg Body Mass Index 19.4 - Constitutional Present: well nourished, well developed - Routine Respiratory Exam Present: CTA bilaterally. Absent: wheezes - Routine Cardiovascular Exam Present: RRR. Absent: murmur - Routine Abdominal Exam Present: soft, normoactive bowel sounds, non distended. Absent: tenderness - Routine Extremities Exam Present: no edema, normal capillary refill - Routine Skin Exam Present: dry, warm - Routine Neurological Exam Present: alert - Routine Lymphatic Exam Lymphatic: Absent: adenopathy - Routine Psychiatric Exam Present: normal affect Results - Labs CBC & Chem 7: 12/28/16 06:09 12/28/16 06:09 Assessment and Plan (1) Dementia with behavioral disturbance Current visit: Yes Status: Acute Assessment and Plan: Impression Dementia with behavioral changes, acute. Paranoid delusions and visual hallucinations, acute. Anemia, present on admission, acute. Constipation, chronic. History of CAD with prior CABG, chronic Plan Vital signs are stable. Labs are stable. Psychiatric notes and nurses notes reviewed. No concerns at this time. No changes in treatment plan. Hospital Course Summary Disclaimer: The visit summary below is not to be considered part of the above Progress Note. Hospital Course: Assessment Dementia with behavioral changes, acute. Paranoid delusions and visual hallucinations, acute. Anemia, present on admission, acute. Constipation, chronic. History of CAD with prior CABG, chronic. Plan-12/27/16 (Admission) Agree on admission to [facility] for further psychiatric evaluation and treatment. Hospitalist service consulted for medical management. Provide safe and supportive environment. Reported decrease in oral intake with weight loss of 16 pounds in the past month. Patient is at risk for malnutrition and complications associated with malnutrition. Consult dietary for additional recommendations. Prealbumin on admission was 14.9, concerning for mild protein calorie malnutrition. Encourage oral intake and fluids. Continue home medications as well as PRN medications for agitation and behaviors. Hemoglobin on admission was low at 12.1. Hemoglobin on 12/23 based on prior records was 13.5. Monitor closely for signs of acute blood loss as BUN is also noted to be slightly elevated at 36. Will recheck CBC and BMP in AM to monitor blood counts, electrolytes and renal function. Given weight loss, decreased appetite, anemia and elevated BUN, may consider checking fecal Hemoccult for possible GI bleed if labs in AM continue to trend down. Monitor blood pressure closely. Review of the patient's chart revealed living will indicating that the patient does not want IV hydration or IV nutrition to prolong life or intubation. DNR paperwork was not present in chart. Discussed with nursing who reported that DNR paperwork is waiting on being signed by Dr. Dan. Currently the patient remains a full code. Upon discharge, patient's care will be returned to his PCP, Dr. Cyr. We appreciate being able to be apart of the patient's care. 12/28/16 Psych: Will discuss treatment plan with patient's daughter/DPOA. Plan to start Zoloft 25mg PO daily to target depression, increase donepezil to 10mg PO q HS. Continue Risperdal 0.5mg PO BID for the time being - may eventually switch to Seroquel. Patient has been eating better since admission. Monitor mood , behavior and response to treatment. 12/29 Psych: Continue current care as patient seems to have improved from yesterday - will continue to monitor mood, behavior today. Encouragement and cueing from staff is helpful in getting patient to eat more of his meals. 12/30 Psych: Will increase Zoloft to 50mg PO daily, discontinue Risperdal and instead start Seroquel 25mg PO TID. Monitor mood, behavior and response to treatment. 01/01/17 Vital signs are stable. Labs are stable. Psychiatric notes and nurses notes reviewed. No concerns at this time. No changes in treatment plan.
--- NOTE | 2017-01-01 20:46 | Neuropsych Progress Note ---
[facility] Subjective Date: 01/01/17 - Sujective/Severity of Illness Medications: Acetaminophen (Tylenol) 650 mg PO Q6H PRN PRN Reason: Pain /Fever Last Admin: 12/31/16 20:24 Dose: 650 mg Bisacodyl (Dulcolax) 10 mg PO DAILY PRN PRN Reason: Constipation Last Admin: 12/28/16 12:10 Dose: 10 mg Donepezil HCl (Aricept) 10 mg PO HS [facility] Last Admin: 12/31/16 20:24 Dose: 10 mg Haloperidol (Haldol) 0.5 mg PO Q6H PRN PRN Reason: Extreme agitation Last Admin: 12/31/16 20:24 Dose: 0.5 mg Haloperidol Lactate (Haldol) 0.5 mg IM Q6H PRN PRN Reason: Extreme agitation Last Admin: 12/30/16 11:56 Dose: 0.5 mg Linaclotide (Linzess) 145 mcg PO DAILY [facility] Last Admin: 01/01/17 11:14 Dose: 145 mcg Lorazepam (Ativan) 0.5 mg PO Q6H PRN PRN Reason: Extreme agitation Last Admin: 12/31/16 20:24 Dose: 0.5 mg Lorazepam (Ativan Inj) 0.5 mg IM Q6H PRN PRN Reason: Extreme agitation Last Admin: 12/30/16 11:56 Dose: 0.5 mg Quetiapine Fumarate (Seroquel) 25 mg PO TID [facility] Last Admin: 01/01/17 17:21 Dose: Not Given Sertraline HCl (Zoloft) 50 mg PO DAILY [facility] Last Admin: 01/01/17 11:14 Dose: 50 mg Subjective: Patient seen and chart reviewed. Case discussed with treatment team. Patient is lying in bed and asks for a drink of water, little other he says is logical -- likely due to expressive aphasia. Nursing staff report patient becomes increasingly restless in the late afternoons. He continues to have AVH and talk to people under his breath. Patient slept 10+ hours overnight. VSS. Patient is eating well with encouragement/cueing from staff. I spoke with patient's daughter/ANNY Hare, who came to visit patient on 12/31. She stated that the family goals for the patient would be to 1) help him "join" their mother who recently, and 2) help him be comfortable. She was in agreement with Hospice consult. Discussed with SW during team meeting today. 12/29 Chest x-ray: WNL 12/[address]: mild atrophy, likely changes due to chronic microvascular ischemia Vitamin B12, folate, TSH, RPR all WNL. BUN decreased since admission. Start Time: 15:20 Stop Time: 15:40 Mental Status Exam Vitals: Last Vital Signs Temp 98.0 F 01/01/17 20:01 Pulse 62 01/01/17 20:01 Resp 20 01/01/17 20:01 BP 134/69 01/01/17 20:01 Pulse Ox 98 01/01/17 20:01 Height: 1.7 m Weight: 56.245 kg - Mental Status Exam Muscle Strength/Tone: Weak Dressing: Casual Grooming: Poor Attitude: Cooperative (during interview) Motor Activity: Retardation Eye Contact: Poor Speech: Slowed, Other (Expressive aphasia) Volume: Soft (barely audible) Rhythm: Mumbled Orientation: Disoriented to time, Disoriented to place, Disoriented to situation , Oriented to person Mood: Other (Unable to give meaningful answer, blunted affect during interview) Rate of Thoughts: Delayed Thought Organization: Disorganized, [place] Associations: Illogical Abstract Reasoning: Impaired, concrete Thought Content: Ruminations, Helplessness Perception/Psychotic: Psychotic Current Hallucinations: Visual, Auditory (suspected) Language: Naming Impaired Fund of Knowledge: Poor fund of knowledge Memory: Poor-immediate, Poor-recent Suicidal Ideation: Other (Endorses morbid thoughts, denies suicidal plan/intent) Homicidal Ideation: Other (Says he has thoughts of hurting his daughter and sister) Insight: Impaired Judgement: Impaired Impulse Control: Poor - Laboratory Result Diagrams: 12/28/16 06:09 12/28/16 06:09 Assessment and Plan (1) Major neurocognitive disorder Problem details: Etiology unknown - r/o Lewy body dementia Current visit: Yes Status: Acute (2) Psychosis Qualifiers: Psychosis type: unspecified psychosis type Qualified Code(s): F29 - Unspecified psychosis not due to a substance or known physiological condition Problem details: r/o Major depressive disorder with psychotic features Mood disorder strongly suspected Current visit: Yes Status: Acute Hospital Course Summary Disclaimer: The visit summary below is not to be considered part of the above Progress Note. Hospital Course: Assessment Dementia with behavioral changes, acute. Paranoid delusions and visual hallucinations, acute. Anemia, present on admission, acute. Constipation, chronic. History of CAD with prior CABG, chronic. Plan-12/27/16 (Admission) Agree on admission to [facility] for further psychiatric evaluation and treatment. Hospitalist service consulted for medical management. Provide safe and supportive environment. Reported decrease in oral intake with weight loss of 16 pounds in the past month. Patient is at risk for malnutrition and complications associated with malnutrition. Consult dietary for additional recommendations. Prealbumin on admission was 14.9, concerning for mild protein calorie malnutrition. Encourage oral intake and fluids. Continue home medications as well as PRN medications for agitation and behaviors. Hemoglobin on admission was low at 12.1. Hemoglobin on 12/23 based on prior records was 13.5. Monitor closely for signs of acute blood loss as BUN is also noted to be slightly elevated at 36. Will recheck CBC and BMP in AM to monitor blood counts, electrolytes and renal function. Given weight loss, decreased appetite, anemia and elevated BUN, may consider checking fecal Hemoccult for possible GI bleed if labs in AM continue to trend down. Monitor blood pressure closely. Review of the patient's chart revealed living will indicating that the patient does not want IV hydration or IV nutrition to prolong life or intubation. DNR paperwork was not present in chart. Discussed with nursing who reported that DNR paperwork is waiting on being signed by Dr. Dan. Currently the patient remains a full code. Upon discharge, patient's care will be returned to his PCP, Dr. Cyr. We appreciate being able to be apart of the patient's care. 12/28/16 Psych: Will discuss treatment plan with patient's daughter/DPOA. Plan to start Zoloft 25mg PO daily to target depression, increase donepezil to 10mg PO q HS. Continue Risperdal 0.5mg PO BID for the time being - may eventually switch to Seroquel. Patient has been eating better since admission. Monitor mood , behavior and response to treatment. 12/29 Psych: Continue current care as patient seems to have improved from yesterday - will continue to monitor mood, behavior today. Encouragement and cueing from staff is helpful in getting patient to eat more of his meals. 12/30 Psych: Will increase Zoloft to 50mg PO daily, discontinue Risperdal and instead start Seroquel 25mg PO TID. Monitor mood, behavior and response to treatment. 12/31/16 Psych: Will continue current care, discuss goals of treatment with family and assess whether Hospice care may be appropriate. Patient seeming to tolerate Seroquel quite well so will not make medication changes in the interim. 01/01/17 Psych: Will continue current care as above, consult Hospice with help of MALORIE.
[2017-01-01] MEDS: ACETAMINOPHEN 325 MG TABLET PO PRN (20:48)
[2017-01-01] MEDS: DONEPEZIL 10 MG TABLET PO SCH (20:48)
[2017-01-02] MEDS: LINACLOTIDE 145 MCG CAPSULE PO SCH (09:45)
[2017-01-02] MEDS: SERTRALINE 50 MG TABLET PO SCH (09:45)
[2017-01-02] MEDS: QUETIAPINE 25 MG TABLET PO SCH ×3 (09:45→20:27)
--- NOTE | 2017-01-02 17:21 | Neuropsych Progress Note ---
[facility] Subjective Date: 01/02/17 - Sujective/Severity of Illness Medications: Acetaminophen (Tylenol) 650 mg PO Q6H PRN PRN Reason: Pain /Fever Last Admin: 01/01/17 20:48 Dose: 650 mg Bisacodyl (Dulcolax) 10 mg PO DAILY PRN PRN Reason: Constipation Last Admin: 12/28/16 12:10 Dose: 10 mg Donepezil HCl (Aricept) 10 mg PO HS [facility] Last Admin: 01/01/17 20:48 Dose: 10 mg Haloperidol (Haldol) 0.5 mg PO Q6H PRN PRN Reason: Extreme agitation Last Admin: 12/31/16 20:24 Dose: 0.5 mg Haloperidol Lactate (Haldol) 0.5 mg IM Q6H PRN PRN Reason: Extreme agitation Last Admin: 12/30/16 11:56 Dose: 0.5 mg Linaclotide (Linzess) 145 mcg PO DAILY [facility] Last Admin: 01/02/17 09:45 Dose: 145 mcg Lorazepam (Ativan) 0.5 mg PO Q6H PRN PRN Reason: Extreme agitation Last Admin: 12/31/16 20:24 Dose: 0.5 mg Lorazepam (Ativan Inj) 0.5 mg IM Q6H PRN PRN Reason: Extreme agitation Last Admin: 12/30/16 11:56 Dose: 0.5 mg Magnesium Hydroxide (Mom) 30 ml PO DAILY PRN PRN Reason: Constipation Last Admin: 01/02/17 15:51 Dose: 30 ml Quetiapine Fumarate (Seroquel) 25 mg PO TID [facility] Last Admin: 01/02/17 15:49 Dose: 25 mg Sertraline HCl (Zoloft) 50 mg PO DAILY [facility] Last Admin: 01/02/17 09:45 Dose: 50 mg Subjective: Patient seen and chart reviewed. Case discussed with treatment team. Patient is lying in bed and is significantly more logical today. He reports that he is feeling well physically and is thinking about sports. He likes the [employer] and says he also likes football though he hasn't been able to watch any amaysim games lately. In regards to his mood, he says, "I am having difficulty pulling it up." Nursing staff report patient continues to have AVH and talk to people under his breath though he is not doing this at time of interview. Patient slept 7.75 hours overnight. VSS. Patient has only eaten 25% of lunch in the past 24 hours. No psychotropic PRN medications required in past 24 hours. I spoke with patient's daughter/ANNY Hare, who came to visit patient on 12/31. She stated that the family goals for the patient would be to 1) help him "join" their mother who recently, and 2) help him be comfortable. She was in agreement with Hospice consult. 12/29 Chest x-ray: WNL 12/[address]: mild atrophy, likely changes due to chronic microvascular ischemia Vitamin B12, folate, TSH, RPR all WNL. BUN decreased since admission. Start Time: 15:20 Stop Time: 15:40 Mental Status Exam Vitals: Last Vital Signs Temp 98.0 F 01/02/17 08:00 Pulse 79 01/02/17 08:00 Resp 16 01/02/17 08:00 BP 115/69 01/02/17 08:00 Pulse Ox 95 01/02/17 08:00 Height: 1.7 m Weight: 53.8 kg - Mental Status Exam Muscle Strength/Tone: Weak Dressing: Casual Grooming: Poor Attitude: Cooperative (during interview) Motor Activity: Retardation Eye Contact: Poor Speech: Slowed, Other (Expressive aphasia) Volume: Soft Rhythm: Appropriate Rhythm Orientation: Disoriented to time, Disoriented to place, Disoriented to situation , Oriented to person Mood: Neutral (Restricted affect) Rate of Thoughts: Delayed Thought Organization: Organized (Significantly more organized today), [place] Associations: Intact Abstract Reasoning: Impaired, concrete Thought Content: Other (Thinking about sports - no other abnormal thought content elicited today) Perception/Psychotic: Psychotic Current Hallucinations: Visual, Auditory (suspected) Language: Naming Impaired Fund of Knowledge: Poor fund of knowledge Memory: Poor-immediate, Poor-recent Suicidal Ideation: Denies Homicidal Ideation: Denies Insight: Impaired Judgement: Impaired Impulse Control: Other (Limited though improving) - Laboratory Result Diagrams: 12/28/16 06:09 12/28/16 06:09 Assessment and Plan (1) Major neurocognitive disorder Problem details: Lewy body dementia - suspected Current visit: Yes Status: Acute (2) Underweight Current visit: Yes Status: Acute Hospital Course Summary Disclaimer: The visit summary below is not to be considered part of the above Progress Note. Hospital Course: Assessment Dementia with behavioral changes, acute. Paranoid delusions and visual hallucinations, acute. Anemia, present on admission, acute. Constipation, chronic. History of CAD with prior CABG, chronic. Plan-12/27/16 (Admission) Agree on admission to [facility] unit for further psychiatric evaluation and treatment. Hospitalist service consulted for medical management. Provide safe and supportive environment. Reported decrease in oral intake with weight loss of 16 pounds in the past month. Patient is at risk for malnutrition and complications associated with malnutrition. Consult dietary for additional recommendations. Prealbumin on admission was 14.9, concerning for mild protein calorie malnutrition. Encourage oral intake and fluids. Continue home medications as well as PRN medications for agitation and behaviors. Hemoglobin on admission was low at 12.1. Hemoglobin on 12/23 based on prior records was 13.5. Monitor closely for signs of acute blood loss as BUN is also noted to be slightly elevated at 36. Will recheck CBC and BMP in AM to monitor blood counts, electrolytes and renal function. Given weight loss, decreased appetite, anemia and elevated BUN, may consider checking fecal Hemoccult for possible GI bleed if labs in AM continue to trend down. Monitor blood pressure closely. Review of the patient's chart revealed living will indicating that the patient does not want IV hydration or IV nutrition to prolong life or intubation. DNR paperwork was not present in chart. Discussed with nursing who reported that DNR paperwork is waiting on being signed by Dr. Dan. Currently the patient remains a full code. Upon discharge, patient's care will be returned to his PCP, Dr. Cyr. We appreciate being able to be apart of the patient's care. 12/28/16 Psych: Will discuss treatment plan with patient's daughter/DPOA. Plan to start Zoloft 25mg PO daily to target depression, increase donepezil to 10mg PO q HS. Continue Risperdal 0.5mg PO BID for the time being - may eventually switch to Seroquel. Patient has been eating better since admission. Monitor mood , behavior and response to treatment. 12/29 Psych: Continue current care as patient seems to have improved from yesterday - will continue to monitor mood, behavior today. Encouragement and cueing from staff is helpful in getting patient to eat more of his meals. 10/8 Psych: Will increase Zoloft to 50mg PO daily, discontinue Risperdal and instead start Seroquel 25mg PO TID. Monitor mood, behavior and response to treatment. 12/31/16 Psych: Will continue current care, discuss goals of treatment with family and assess whether Hospice care may be appropriate. Patient seeming to tolerate Seroquel quite well so will not make medication changes in the interim. 01/01/17 Psych: Will continue current care as above, consult Hospice with help of MALORIE. 01/02/17 Psych: Family in agreement with Hospice consult. SW to make arrangements with facility. Continue current care in the interim.
--- NOTE | 2017-01-02 17:26 | Discharge Instructions ---
Discharge Plan - Med Rec/Dispo Referrals/Follow Up: ODALIS PAIZ APRN [Family Provider] - (Patient will be seen on rounds by the Resident Medical Officer for Hosp. follow-up. . No Mental Health appt. scheduled, due to patient's advanced dementia. Hospice services will meet patients needs.) Additional Instructions: Discharge Diagnosis: Major neurocognitive disorder, severe, with behavioral disturbance - suspect Lewy Body dementia Reasons for Admission: Extreme weight loss, refusing to eat, and refusing medications. IN CASE OF PSYCHIATRIC EMERGENCY, CONTACT [facility] STAFF AT [phone] ( available 24 hrs daily). Prescriptions: New Donepezil [Aricept] 10 mg PO HS tablet Quetiapine [Seroquel] 25 mg PO TID tablet Sertraline [Zoloft] 50 mg PO DAILY tablet Discontinued RisperiDONE [RisperDAL] 0.25 mg PO BID LORazepam [Ativan] 0.5 mg PO Q6H PRN PRN Reason: Anxiety Donepezil HCl [Aricept] 5 mg PO HS Memantine HCl [Namenda Xr] 28 mg PO DAILY No Action Acetaminophen 650 mg PO Q6H PRN PRN Reason: Pain /Fever Linaclotide [Linzess] 145 mcg PO DAILY - Disposition 04 To [facility] Home/Facility
[2017-01-02] MEDS: DONEPEZIL 10 MG TABLET PO SCH (20:27)
[2017-01-02 22:40] VITALS: RESP 16; TEMP 98.2; O2SAT 98
[2017-01-03] MEDS: SERTRALINE 50 MG TABLET PO SCH (08:53)
[2017-01-03] MEDS: LINACLOTIDE 145 MCG CAPSULE PO SCH (08:53)
[2017-01-03] MEDS: QUETIAPINE 25 MG TABLET PO SCH (08:53)
[2017-01-03 09:20] VITALS: BP 120/72; PULSE 67
--- NOTE | 2017-01-28 20:02 | Neuropsychiatric Disch Summary ---
Discharge Information Date of admission: 12/26/16 22:00 Attending Physician: Paulette Dan MD Primary care physician: ODALIS PAIZ Consults: 12/26/16 22:11 Case Management Consult [CONS] Routine Reason For Exam: Physician Consult [CONS] Routine Consulting Provider: Nora Archuleta Reason For Exam: medical management Ordering Provider has Notified State Epidemiologist: Yes 12/26/16 23:21 Dietary Consult [CONS] Routine Comment: reassess for need of finger foods Reason For Exam: recent weight loss, positive high risk score - Discharge Diagnosis (1) Major neurocognitive disorder Status: Acute (2) Underweight Status: Acute Major neurocognitive disorder, severe, with behavioral disturbance - Lewy Body dementia suspected - Laboratory Labs: 12/28/16 06:09 12/28/16 06:09 Date of Admission: 12/26/16 22:00 History of Present Illness: Patient is a 76-year-old male with a history of dementia who was admitted to [facility], [place], operated by [facility] on 12/27 from [facility]. He has been living there since 10/13/16, since the sudden of his 2nd (and primary caregiver). Staff report patient has declined since that time, losing 16 lb. in the past month. He has been refusing to eat and take medications. He has had VH and paranoia. He has been less engaging with staff/residents and occasionally will push staff away if they try to help. On interview, patient whispers and can be very difficult to understand. He walks with a shuffling, slow gait with his back hunched. He tells me he is from [place], [place] and he is here "because his Dad need a job." He did complain to nursing staff about seeing scary things (cats, gremlins, Swastikas, cars) when walking the halls. He does not give logical answers when asked about SI or HI. Patient reportedly lost his first before remarrying and then lost a son in his 20s in an MVA. His 2nd reportedly suddenly due to NC. DPOA is daughter Ananya Miramontes ([phone]). Hospital Course This is a general summary of the patient's hospital course. For more details refer to the complete medical record. Hospital course: Assessment Dementia with behavioral changes, acute. Paranoid delusions and visual hallucinations, acute. Anemia, present on admission, acute. Constipation, chronic. History of CAD with prior CABG, chronic. Plan-12/27/16 (Admission) Agree on admission to [facility] unit for further psychiatric evaluation and treatment. Hospitalist service consulted for medical management. Provide safe and supportive environment. Reported decrease in oral intake with weight loss of 16 pounds in the past month. Patient is at risk for malnutrition and complications associated with malnutrition. Consult dietary for additional recommendations. Prealbumin on admission was 14.9, concerning for mild protein calorie malnutrition. Encourage oral intake and fluids. Continue home medications as well as PRN medications for agitation and behaviors. Hemoglobin on admission was low at 12.1. Hemoglobin on 12/23 based on prior records was 13.5. Monitor closely for signs of acute blood loss as BUN is also noted to be slightly elevated at 36. Will recheck CBC and BMP in AM to monitor blood counts, electrolytes and renal function. Given weight loss, decreased appetite, anemia and elevated BUN, may consider checking fecal Hemoccult for possible GI bleed if labs in AM continue to trend down. Monitor blood pressure closely. Review of the patient's chart revealed living will indicating that the patient does not want IV hydration or IV nutrition to prolong life or intubation. DNR paperwork was not present in chart. Discussed with nursing who reported that DNR paperwork is waiting on being signed by Dr. Dan. Currently the patient remains a full code. Upon discharge, patient's care will be returned to his PCP, Dr. Cyr. We appreciate being able to be apart of the patient's care. 12/28/16 Psych: Will discuss treatment plan with patient's daughter/DPOA. Plan to start Zoloft 25mg PO daily to target depression, increase donepezil to 10mg PO q HS. Continue Risperdal 0.5mg PO BID for the time being - may eventually switch to Seroquel. Patient has been eating better since admission. Monitor mood , behavior and response to treatment. 12/29 Psych: Continue current care as patient seems to have improved from yesterday - will continue to monitor mood, behavior today. Encouragement and cueing from staff is helpful in getting patient to eat more of his meals. 12/30 Psych: Will increase Zoloft to 50mg PO daily, discontinue Risperdal and instead start Seroquel 25mg PO TID. Monitor mood, behavior and response to treatment. 12/31/16 Psych: Will continue current care, discuss goals of treatment with family and assess whether Hospice care may be appropriate. Patient seeming to tolerate Seroquel quite well so will not make medication changes in the interim. 01/01/17 Psych: Will continue current care as above, consult Hospice with help of SW. 01/02/17 Psych: Family in agreement with Hospice consult. SW to make arrangements with facility. Continue current care in the interim. Discharge Plan - Med Rec/Dispo Referrals/Follow Up: ODALIS PAIZ APRN [Family Provider] - (Patient will be seen on rounds by the Artificial Glass Eye Maker for Hosp. follow-up. . No Mental Health appt. scheduled, due to patient's advanced dementia. Hospice services will meet patients needs.) Carol Instructions: Dementia (GEN) Additional Instructions: Discharge Diagnosis: Major neurocognitive disorder, severe, with behavioral disturbance - suspect Lewy Body dementia Reasons for Admission: Extreme weight loss, refusing to eat, and refusing medications. IN CASE OF PSYCHIATRIC EMERGENCY, CONTACT [facility] STAFF AT [phone] ( available 24 hrs daily). Prescriptions: New Donepezil [Aricept] 10 mg PO HS tablet Quetiapine [Seroquel] 25 mg PO TID tablet Sertraline [Zoloft] 50 mg PO DAILY tablet Discontinued RisperiDONE [RisperDAL] 0.25 mg PO BID LORazepam [Ativan] 0.5 mg PO Q6H PRN PRN Reason: Anxiety Donepezil HCl [Aricept] 5 mg PO HS Memantine HCl [Namenda Xr] 28 mg PO DAILY No Action Acetaminophen 650 mg PO Q6H PRN PRN Reason: Pain /Fever Linaclotide [Linzess] 145 mcg PO DAILY - Disposition 50 Discharged To Hospice-Home
== END 2017-01-03 12:45 | disposition hospice, home (50) | DRG 884 ==
LOC: ED 18:29 → GEN 21:30
PROVIDERS: ADMIT Psychiatry & Neurology Psychiatry; ATTEND Psychiatry & Neurology Psychiatry